=== PATIENT | female | born 2000 | race Two or more races ===

== ENCOUNTER 2024-07-19 12:10 | Emergency (ER) | payer OTHER ==
[~2024-07-19] VITALS: Ht 160 cm; Wt 57.2 kg
[2024-07-19] MEDS ORDERED: ZIPSOR25 MG (12:14)
[2024-07-19] MEDS ORDERED: 0.9 % SODIUM CHLORIDE 1,000 ML IV ONE (12:30)
[2024-07-19] MEDS ORDERED: LevETIRAcetam 500 MG/5 ML VIAL IV ONE (12:30)
[2024-07-19 12:56] LABS: HEMATOCRIT 42.1 % (36.0-45.00); HEMOGLOBIN 14.4 g/dL (12.0-15.00); MEAN CELL VOLUME 87.7 fL (80.00-100.00); MEAN CORPUSCULAR HEMOGLOBIN 29.9 pg (27.00-32.0); MEAN CORPUSCULAR HGB CONC 34.1 g/dl (32.0-36.0); RED CELL DISTRIBUTION WIDTH 13.4 % (11.5-14.5)
[2024-07-19 13:10] LABS: PLATELET COUNT 73 K/uL (150-450)
[2024-07-19 13:33] LABS: HEMATOCRIT 42.5 % (36.0-45.00); HEMOGLOBIN 14.6 g/dL (12.0-15.00); MEAN CELL VOLUME 87.5 fL (80.00-100.00); MEAN CORPUSCULAR HGB CONC 34.3 g/dl (32.0-36.0); PLATELET COUNT 338 K/uL (150-450); RED BLOOD COUNT 4.86 M/uL (4.00-6.00); RED CELL DISTRIBUTION WIDTH 13.4 % (11.5-14.5)
[2024-07-19 13:57] LABS: URINE APPEARANCE Clear; URINE BILIRRUBIN Negative (NEGATIVE); URINE BLOOD Negative; URINE COLOR Yellow; URINE GLUCOSE Negative (NEGATIVE); URINE KETONE Negative (NEGATIVE); URINE LEUKOCYTE Negative; URINE NITRATE Negative; URINE PROTEIN Negative (NEGATIVE); URINE UROBILINOGEN 0.2 E.U./dl
[2024-07-19 14:07] LABS: ALBUMIN 4.3 gm/dL (3.4-5.0); ALKALINE PHOSPHATASE 68 U/L (50-136); ALT/SGPT 24 U/L (12-78); ANION GAP 8 (10.0-20.0); AST/SGOT 22 U/L (15-37); BILIRUBIN TOTAL 0.39 mg/dL (0.3-1.2); BLOOD UREA NITROGEN 9 mg/dL (7-18); BUN CREA RATIO 12 (7.0-25.0); CALCIUM 9.4 mg/dL (8.5-10.1); CARBON DIOXIDE 28 mEq/L (21-32); CHLORIDE 108 mmol/L (98-107); CREATININE SERUM 0.76 mg/dL (0.55-1.02); GFR 92.72; GLOBULINA 4.2 G/DL (2.4-3.5); GLUCOSE FASTING 87 mg/dL (65-100); OSMOLALITY SERUM 277 MOSM/KG (275-295); PHOSPHOKINASE CREATININE 107 U/L (26-192); POTASSIUM 4.31 mEq/L (3.5-5.1); SODIUM 140 mmol/L (136-145); TOTAL PROTEIN 8.5 gm/dL (6.4-8.2)
[2024-07-19 14:11] LABS: HCG QUANTITATIVE < 1 mUI/mL (1-3)
[2024-07-19 14:16] LABS: URINE BACTERIA 28.1 uL (0.0-1933); URINE EPITHELIAL CELLS 3.6 uL (0.0-38.8); URINE RBC 2.7 uL (0.0-20.8)
[2024-07-19 14:19] LABS: URINE WBC 1.5 uL (0.0-23.2)
[2024-07-19] MEDS ORDERED: KEPPRA500 MG PO (18:12)
== END 2024-07-19 18:59 | disposition home or self-care (01) ==
LOC: ER 12:10
PROVIDERS: General Practice
DX: G40.89 Other seizures (principal); Z91.013 Allergy to seafood; Z88.8 Allergy status to other drugs, medicaments and biological substances; Z91.018 Allergy to other foods
CPT/HCPCS: 36415; 70450; 71045; 93005; 93041; 96365; 99284; J3490

== ENCOUNTER 2024-08-10 11:04 | Emergency (ER) | payer OTHER ==
[~2024-08-10] VITALS: Ht 165.1 cm; Wt 59.0 kg
[~2024-08-10 11:04] MED LIST: KEPPRA500 MG PO; ZIPSOR25 MG
[2024-08-10] MEDS ORDERED: LevETIRAcetam 500 MG/5 ML VIAL IV STA (11:34)
[2024-08-10] MEDS ORDERED: LevETIRAcetam 500 MG/5 ML VIAL IV ONE (11:57)
[2024-08-10 12:50] LABS: HEMATOCRIT 39.2 % (36.0-45.00); HEMOGLOBIN 13.3 g/dL (12.0-15.00); MEAN CELL VOLUME 87.6 fL (80.00-100.00); MEAN CORPUSCULAR HEMOGLOBIN 29.7 pg (27.00-32.0); MEAN CORPUSCULAR HGB CONC 33.8 g/dl (32.0-36.0); PLATELET COUNT 322 K/uL (150-450); RED BLOOD COUNT 4.47 M/uL (4.00-6.00)
[2024-08-10 12:56] LABS: ERYTHROCYTE SEDIMENTATION RATE 11 mm/hr
[2024-08-10 13:45] LABS: ANION GAP 11 (10.0-20.0); BLOOD UREA NITROGEN 8 mg/dL (7-18); BUN CREA RATIO 11 (7.0-25.0); CALCIUM 9.3 mg/dL (8.5-10.1); CARBON DIOXIDE 26 mEq/L (21-32); CHLORIDE 107 mmol/L (98-107); CREATININE SERUM 0.72 mg/dL (0.55-1.02); GFR 98.69; GLUCOSE FASTING 72 mg/dL (65-100); OSMOLALITY SERUM 276 MOSM/KG (275-295); POTASSIUM 4.14 mEq/L (3.5-5.1); SODIUM 140 mmol/L (136-145)
[2024-08-10 13:59] LABS: C-REACTIVE PROTEIN < 0.29 MG/DL (0.00-0.29)
== END 2024-08-10 18:20 | disposition home or self-care (01) ==
LOC: ER 11:04
PROVIDERS: General Practice
DX: R56.9 Unspecified convulsions (principal); Z91.013 Allergy to seafood; Z91.018 Allergy to other foods
CPT/HCPCS: 36415; 96365; 99282; J3490